=== PATIENT | female | born 1970 | race Caucasian/White ===

== ENCOUNTER → 2021-04-09 13:28 | Outpatient (CLI) | payer OTHER, MEDICAID, SELFPAY ==
[2021-04-09 14:36] LABS: Free T3, Triiodothyronine Free 2.81 pg/mL (2.77-5.27); Free T4, Direct Thyroxine 1.16 ng/dL (0.78-2.19)
[2021-04-09 18:32] LABS: Thyroid Stimulating Hormone 2.01 uIU/mL (0.47-4.68)
== END ==
PROVIDERS: PCP Nurse Practitioner; Referring Provider Nurse Practitioner; Visit Provider Nurse Practitioner
DX: R00.2 Palpitations (principal)
CPT/HCPCS: 36415; 84439; 84443; 84481

== ENCOUNTER → 2022-05-05 10:48 | Outpatient (CLI) | payer OTHER, MEDICAID, SELFPAY ==
[2022-05-05 12:24] LABS: Add Manual Diff / Slide Review NO; Basophils Absolute Auto 0 /uL (0-100); Basophils Percent Auto 0.4 % (0-2); Eosinophils Absolute Auto 100 /uL (0-450); Hematocrit 37.9 % (36-46); Hemoglobin 12.7 g/dL (12.0-16.0); Lymphocytes Absolute Auto 1400 /uL (1100-4500); Lymphocytes Percent Auto 30.5 % (25-40); Mean Corpuscular HGB Conc 33.5 % (30-36); Mean Corpuscular Hemoglobin 30.6 PG (26-34); Mean Corpuscular Volume 91.4 fL (80-100); Monocytes Absolute Auto 400 /uL (0-900); Monocytes Percent Auto 7.9 % (3-14); Neutrophils Absolute Auto 2700 /uL (1500-7000); Neutrophils Percent Auto 59.2 % (50-75); Platelet Count 179 X10^3/uL (150-400); Red Blood Cell Count 4.15 X10^6/uL (4.0-5.2); Red Cell Distribution Width 13.9 % (11.6-14.8); White Blood Cell Count 4.6 X10^3/uL (4.5-11.0)
[2022-05-05 12:52] LABS: Alanine Aminotransferase 16 IU/L (<35); Albumin 4.2 g/dL (3.5-5.0); Albumin Globulin Ratio 1.4 (1.0-2.8); Alkaline Phosphatase 33 U/L (38-126); Aspartate Aminotransferase 25 IU/L (14-36); BUN Creatinine Ratio 26.4 (6-22); Bilirubin Total 0.6 mg/dL (0.2-1.3); Blood Urea Nitrogen 19 mg/dL (7-17); Calcium 8.5 mg/dL (8.4-10.2); Carbon Dioxide 29 mmol/L (22-32); Chloride 105 mmol/L (98-107); Cholesterol 238 mg/dL (140-199); Estimated Glomerular Filt Rate > 60 mL/min (>60); Globulin 3.1 g/dL (1.7-4.1); Glucose 87 mg/dL (70-100); HDL Cholesterol 79 mg/dL (40-60); HEMOLYSIS < 15 (0-50); LDL Cholesterol Calculated 151 mg/dL (<100); Sodium 137 mmol/L (137-145); Total Protein 7.3 g/dL (6.3-8.2); Triglycerides 42 mg/dL (35-150)
[2022-05-05 13:14] LABS: Free T3, Triiodothyronine Free 2.55 pg/mL (2.77-5.27); Free T4, Direct Thyroxine 1.29 ng/dL (0.78-2.19)
[2022-05-05 13:28] LABS: Thyroid Stimulating Hormone 1.66 uIU/mL (0.47-4.68)
[2022-05-05 15:29] LABS: Progesterone, Total 0.26 ng/mL; Vitamin D 25 Hydroxy (D3) 49.1 ng/mL (30.0-100.0)
[2022-05-05 15:44] LABS: Potassium 4.2 mmol/L (3.4-5.1)
[2022-05-06 15:08] LABS: EBV Early Antigen AB,IgG 24.8 U/mL (0.0-8.9)
[2022-05-08 14:28] LABS: Estrogen 167 pg/mL (.)
[2022-05-09 15:23] LABS: EBV Ab VCA, IgM <36.0 U/mL (0.0-35.9)
== END ==
PROVIDERS: PCP Nurse Practitioner; Referring Provider Nurse Practitioner; Visit Provider Nurse Practitioner
DX: Z00.00 Encounter for general adult medical examination without abnormal findings (principal); E03.9 Hypothyroidism, unspecified; G89.29 Other chronic pain; M25.50 Pain in unspecified joint; N95.1 Menopausal and female climacteric states; R53.81 Other malaise; R53.83 Other fatigue; T50.B95A Adverse effect of other viral vaccines, initial encounter; U09.9 Post COVID-19 condition, unspecified
CPT/HCPCS: 36415; 80053; 80061; 82306; 82672; 83001; 84144; 84439; 84443; 84481; 85025; 86663; 86664; 86665

== ENCOUNTER → 2022-05-05 14:17 | Outpatient (CLI) | payer OTHER, MEDICAID, SELFPAY ==
--- NOTE | 2022-05-05 14:18 | DI.US.S_ITS ---
PROCEDURE: US EXTREMITY NONVASC LOWER RT INDICATIONS: Growing, tender mass upper right thigh TECHNIQUE: Real-time scanning was performed of the right thigh, with image documentation. COMPARISON: None. FINDINGS: Ultrasound examination of anterior medial right upper thigh shows a 3.9 x 1.7 x 4.2 heterogeneously echogenic structure within subcutaneous soft tissue and show mild internal vascularity. There is a 2.7 x 0.8 x 2.6 cm similarly heterogeneously echogenic structure in right anterior lower leg at the level of tibial shaft and show some internal vascularity. IMPRESSION: Finding may represent lipomas in right thigh and right lower leg soft tissue, liposarcoma cannot be excluded. Clinical correlation and follow-up is recommended. Dictated by: Canelo Silverio M.D. on 05/05/2022 at 17:26 Approved by: Canelo Silverio M.D. on 05/05/2022 at 17:28
== END ==
PROVIDERS: PCP Nurse Practitioner; Referring Provider Nurse Practitioner; Visit Provider Nurse Practitioner
DX: Z00.00 Encounter for general adult medical examination without abnormal findings (principal); R22.41 Localized swelling, mass and lump, right lower limb; E03.9 Hypothyroidism, unspecified; G89.29 Other chronic pain; M25.50 Pain in unspecified joint; N95.1 Menopausal and female climacteric states; R53.81 Other malaise; R53.83 Other fatigue; T50.B95A Adverse effect of other viral vaccines, initial encounter; U09.9 Post COVID-19 condition, unspecified
CPT/HCPCS: 36415; 76882; 80053; 80061; 82306; 82672; 83001; 84144; 84439; 84443; 84481; 85025; 86663; 86664; 86665

== ENCOUNTER → 2024-05-15 14:58 | Outpatient (CLI) | payer OTHER, MEDICAID, SELFPAY ==
[2024-05-17 11:13] LABS: Fecal Immunochemical Test Negative (Negative)
== END ==
PROVIDERS: PCP Family Medicine; Referring Provider Family Medicine; Visit Provider Family Medicine
DX: Z12.11 Encounter for screening for malignant neoplasm of colon (principal)
CPT/HCPCS: 82274

== ENCOUNTER → 2024-12-07 10:33 | Outpatient (CLI) | payer OTHER, MEDICAID, SELFPAY ==
--- NOTE | 2024-12-07 10:36 | DI.MG.S_ITS ---
MM screening mammo BI: 12/07/2024. BI-RADS: 1 CLINICAL: 54-year old female for bilateral screening mammogram. Tyrer-Cuzick lifetime risk of 19.9%. Current reported family history of breast cancer: mother. PRIOR EXAMS 08/26/2014. MAMMOGRAPHY TECHNIQUE: 2D and 3D (tomosynthesis) digital mammographic views obtained, with additional images as needed for full coverage. Current study was also evaluated with a Computer Aided Detection (CAD) system. DENSITY C. The breasts are heterogeneously dense, which may obscure small masses. MAMMOGRAPHY FINDINGS Bilateral: No suspicious mass, asymmetry, microcalcification, or other abnormality seen. No significant change from comparison. IMPRESSION: * No evidence of malignancy. RECOMMENDATIONS Bilateral * Annual screening mammography. OVERALL ASSESSMENT CATEGORY BI-RADS-1: Negative. The [employer] recommends annual screening mammography beginning at age 40 for women with average risk of breast cancer. ELECTRONICALLY SIGNED: Silva Nickerson M.D. on 12/09/2024 at 12:30:35 PM PT Interpreting Station ID: [id number]
[2024-12-07 11:32] LABS: Add Manual Diff / Slide Review NO; Basophils Absolute Auto 0 /uL (0-100); Basophils Percent Auto 0.5 % (0-2); Eosinophils Absolute Auto 100 /uL (0-450); Eosinophils Percent Auto 1.8 % (2-4); Hemoglobin 13.4 g/dL (12.0-16.0); Lymphocytes Absolute Auto 1700 /uL (1100-4500); Lymphocytes Percent Auto 29.5 % (25-40); Mean Corpuscular HGB Conc 33.4 % (30-36); Mean Corpuscular Hemoglobin 30.2 PG (26-34); Mean Corpuscular Volume 90.6 fL (80-100); Monocytes Absolute Auto 500 /uL (0-900); Monocytes Percent Auto 7.9 % (3-14); Neutrophils Absolute Auto 3600 /uL (1500-7000); Neutrophils Percent Auto 60.3 % (50-75); Platelet Count 221 X10^3/uL (150-400); Red Blood Cell Count 4.42 X10^6/uL (4.0-5.2); White Blood Cell Count 5.9 X10^3/uL (4.5-11.0)
[2024-12-07 11:54] LABS: Alanine Aminotransferase 22 IU/L (<35); Albumin 4.1 g/dL (3.5-5.0); Albumin Globulin Ratio 1.6 (1.0-2.8); Alkaline Phosphatase 46 U/L (38-126); Aspartate Aminotransferase 25 IU/L (14-36); BUN Creatinine Ratio 31.5 (6-22); Bilirubin Total 0.4 mg/dL (0.2-1.3); Blood Urea Nitrogen 28 mg/dL (7-17); Calcium 8.9 mg/dL (8.4-10.2); Carbon Dioxide 26 mmol/L (22-32); Chloride 105 mmol/L (98-107); Estimated Glomerular Filt Rate > 60 mL/min (>60); Globulin 2.5 g/dL (1.7-4.1); Glucose 107 mg/dL (70-100); HEMOLYSIS < 15 (0-50); Potassium 4.8 mmol/L (3.4-5.1); Sodium 138 mmol/L (137-145); Total Protein 6.6 g/dL (6.3-8.2)
[2024-12-07 12:11] LABS: Free T3, Triiodothyronine Free 2.55 pg/mL (2.77-5.27)
[2024-12-07 16:12] LABS: Progesterone, Total 0.77 ng/mL
[2024-12-07 16:27] LABS: Estradiol, Total 109.5 pg/mL
== END ==
LOC: MAMMO 10:35
PROVIDERS: PCP Family Medicine; Referring Provider Family Medicine; Visit Provider Family Medicine
DX: Z12.31 Encounter for screening mammogram for malignant neoplasm of breast (principal); Z80.3 Family history of malignant neoplasm of breast; R92.333 Mammographic heterogeneous density, bilateral breasts; N95.1 Menopausal and female climacteric states; E03.9 Hypothyroidism, unspecified; R53.83 Other fatigue; R20.2 Paresthesia of skin; M79.601 Pain in right arm; M79.602 Pain in left arm; Z86.16 Personal history of COVID-19
CPT/HCPCS: 36415; 77063; 77067; 80053; 82670; 84144; 84443; 84481; 84482; 85025

== ENCOUNTER → 2024-12-18 11:34 | Outpatient (CLI) | payer OTHER, SELFPAY ==
--- NOTE | 2024-12-18 11:35 | DI.RAD.S_ITS ---
PROCEDURE: XR FOOT RT MIN 3V INDICATIONS: Arch Of foot painful after stepping wrong TECHNIQUE: 3 views of the foot were acquired. COMPARISON: None. FINDINGS: Bones: No fractures or dislocations. No suspicious bony lesions. Soft tissues: No tibiotalar joint effusion. Achilles tendon appears normal. IMPRESSION: No acute bony abnormality. Approved by: Enzo Gray M.D. on 12/18/2024 at 18:41
== END ==
PROVIDERS: PCP Family Medicine; Referring Provider Nurse Practitioner Family; Visit Provider Nurse Practitioner Family
DX: S96.911A Strain of unspecified muscle and tendon at ankle and foot level, right foot, initial encounter (principal); X58.XXXA Exposure to other specified factors, initial encounter
CPT/HCPCS: 73630